=== PATIENT | male | born 1935 | race Caucasian/White ===

== ENCOUNTER 2020-08-18 08:53 | Emergency (ER) | payer MEDICARE ==
[~2020-08-18] VITALS: Ht 165.1 cm; Wt 75.8 kg
[2020-08-18 11:01] LABS: BASOPHILS # (AUTO) 0.1 X10'3 (0-0.2); BASOPHILS % (AUTO) 0.9 % (0-1); EOSINOPHILS # (AUTO) 0.1 X10'3 (0-0.9); EOSINOPHILS % (AUTO) 1.5 % (0-6); HEMATOCRIT 40.8 % (42.0-52.0); HEMOGLOBIN 13.3 g/dl (14.0-17.9); LYMPHOCYTES % (AUTO) 15.9 % (21-51); MEAN CORPUSCULAR HEMOGLOBIN 29.1 PG (27.0-31.0); MEAN CORPUSCULAR HGB CONC 32.5 g/dL (33.0-36.5); MEAN CORPUSCULAR VOLUME 89.5 FL (78-98); MEAN PLATELET VOLUME 8.5 FL (7.4-10.4); MONOCYTES # (AUTO) 0.7 X10'3 (0-0.9); MONOCYTES % (AUTO) 10.6 % (2-12); NEUTROPHILS # (AUTO) 4.6 X10'3 (1.8-7.7); NEUTROPHILS % (AUTO) 71.1 % (42-75); PLATELET COUNT 151 X10'3 (140-440); RED BLOOD COUNT 4.56 X10'6 (4.70-6.10); RED CELL DISTRIBUTION WIDTH 14.2 % (11.5-14.5); WHITE BLOOD COUNT 6.5 X10'3 (4.5-11.0)
--- NOTE | 2020-08-18 11:14 | NUR ---
pt ambulated to restroom
[2020-08-18 11:15] LABS: ALANINE AMINOTRANSFERASE 28 U/L (12-78); ALBUMIN 3.5 G/DL (3.4-5.0); ALKALINE PHOSPHATASE 78 IU/L (46-116); ANION GAP 7 (8-16); ASPARTATE AMINO TRANSFERASE 36 U/L (10-37); BILIRUBIN,TOTAL 0.5 MG/DL (0.1-1.0); BLOOD UREA NITROGEN 21 MG/DL (7-18); BUN/CREATININE RATIO 16.9 (5.4-32.0); CALCIUM 8.3 MG/DL (8.5-10.1); CHLORIDE 109 MMOL/L (99-107); CREATININE 1.24 MG/DL (0.60-1.10); GLUCOSE 98 MG/DL (70-104); POTASSIUM 3.7 MMOL/L (3.5-5.1); SODIUM 146 MMOL/L (135-145); TOTAL CARBON DIOXIDE 30.5 MMOL/L (24-32); TOTAL PROTEIN 7.1 G/DL (6.4-8.2); eGFR 56 ML/MIN
[2020-08-18] MEDS ORDERED: iohexol 300mg/ml 100ml inj. ONE (11:21)
[2020-08-18 12:30] VITALS: BP 154/100
== END 2020-08-18 12:33 | disposition home or self-care (01) ==
LOC: ER 08:54
DX: S20.211A Contusion of right front wall of thorax, initial encounter (principal); J90 Pleural effusion, not elsewhere classified; R22.2 Localized swelling, mass and lump, trunk; R07.89 Other chest pain; R06.02 Shortness of breath; I48.91 Unspecified atrial fibrillation; Z88.5 Allergy status to narcotic agent; W19.XXXA Unspecified fall, initial encounter; Y93.89 Activity, other specified; Y92.89 Other specified places as the place of occurrence of the external cause; Y99.8 Other external cause status
CPT/HCPCS: 36415; 71100; 71250; 80053; 85025; 93005; 99285; Q9967

== ENCOUNTER 2021-02-25 10:39 | Outpatient (CLI) | payer MEDICARE | END 2021-02-25 23:59 | disposition home or self-care (01) | LOC: RAD 10:39 | PROVIDERS: ATTEND Family Medicine | DX: M48.061 Spinal stenosis, lumbar region without neurogenic claudication (principal); M40.46 Postural lordosis, lumbar region | CPT/HCPCS: 72148 ==

== ENCOUNTER 2021-06-22 10:00 | Day surgery (SDC) | payer MEDICARE ==
[2021-06-21 13:20] LABS: BASOPHILS % (AUTO) 0.6 % (0-1); EOSINOPHILS # (AUTO) 0.1 X10'3 (0-0.9); EOSINOPHILS % (AUTO) 1.9 % (0-6); HEMATOCRIT 32.2 % (42.0-52.0); HEMOGLOBIN 10.1 g/dl (14.0-17.9); LYMPHOCYTES # (AUTO) 1.2 X10'3 (1.1-4.8); LYMPHOCYTES % (AUTO) 21.8 % (21-51); MEAN CORPUSCULAR HEMOGLOBIN 23.9 PG (27.0-31.0); MEAN CORPUSCULAR HGB CONC 31.3 g/dL (33.0-36.5); MEAN CORPUSCULAR VOLUME 76.5 FL (78-98); MEAN PLATELET VOLUME 7.8 FL (7.4-10.4); MONOCYTES # (AUTO) 0.6 X10'3 (0-0.9); MONOCYTES % (AUTO) 10.4 % (2-12); NEUTROPHILS # (AUTO) 3.7 X10'3 (1.8-7.7); NEUTROPHILS % (AUTO) 65.3 % (42-75); PLATELET COUNT 176 X10'3 (140-440); RED BLOOD COUNT 4.21 X10'6 (4.70-6.10); WHITE BLOOD COUNT 5.6 X10'3 (4.5-11.0)
[2021-06-21 13:28] LABS: ALBUMIN 3.7 G/DL (3.4-5.0); ANION GAP 4 (8-16); BLOOD UREA NITROGEN 25 MG/DL (7-18); BUN/CREATININE RATIO 16.3 (5.4-32.0); CALCIUM 8.8 MG/DL (8.5-10.1); CHLORIDE 105 MMOL/L (99-107); CREATININE 1.53 MG/DL (0.60-1.10); GLUCOSE 92 MG/DL (70-104); POTASSIUM 4.3 MMOL/L (3.5-5.1); SODIUM 143 MMOL/L (135-145); TOTAL CARBON DIOXIDE 33.9 MMOL/L (24-32); eGFR 44 ML/MIN
[2021-06-21 13:31] LABS: APTT 25 SECONDS (22-32)
[2021-06-21 13:46] LABS: PLATELET ESTIMATE NORMAL
[2021-06-21 13:47] LABS: ANISOCYTOSIS 3+; ELLIPTOCYTES FEW; MICROCYTOSIS 1+
[~2021-06-22] VITALS: Ht 162.6 cm; Wt 73.3 kg
[2021-06-22] VITALS (12 sets, daily range): BP systolic 135–171; BP diastolic 48–97
[2021-06-22] MEDS ORDERED: diphenhydrAMINE 25mg capsule PO PRN (10:15)
[2021-06-22] MEDS ORDERED: LORazepam 0.5 MG tablet PO PRN (10:15)
[2021-06-22] MEDS ORDERED: LISI20TA28 PO (10:39)
[2021-06-22] MEDS ORDERED: DILT240C47 PO (10:39)
[2021-06-22] MEDS ORDERED: SENN-25 PO (10:39)
[2021-06-22] MEDS ORDERED: FURO40TA4 PO (10:39)
[2021-06-22] MEDS ORDERED: ROSU20TA31 PO (10:39)
[2021-06-22] MEDS ORDERED: OMEP20CA16 PO (10:39)
[2021-06-22] MEDS ORDERED: APIX5TAB3 PO (10:39)
[2021-06-22] MEDS ORDERED: MELO-102 PO (10:39)
[2021-06-22] MEDS ORDERED: HYDR-3972 PO (10:39)
[2021-06-22] MEDS ORDERED: sodium bicarbonate (8.4%) inj. 150 MEQ in dextrose 5%-water 1,000 ML IV SCH (10:40)
[2021-06-22] MEDS ORDERED: normal saline 1000ml 1,000 ML IV SCH ×2 (10:55→14:20)
[2021-06-22] MEDS ORDERED: nitroGLYCERIN-Tridil 50MG/D5W 250 ML IV ONE (11:57)
[2021-06-22] MEDS ORDERED: LIDOcaine 1% (10mg/ml)w/preservative inj. 20ml MDV ONE (11:57)
[2021-06-22] MEDS ORDERED: verapamil 2.5 mg/ml inj IV ONE (11:57)
[2021-06-22] MEDS ORDERED: fentaNYL/PF 50MCG/1 ML 2ML syringe ONE (11:57)
[2021-06-22] MEDS ORDERED: midazolam 1 mg/ML 2ml injection ONE (11:57)
[2021-06-22] MEDS ORDERED: heparin 1,000unit/ml 10ml vial 10 ML ONE (11:58)
[2021-06-22] MEDS ORDERED: iohexol 350 MG/ML 50ML vial IV ONE ×2 (12:04→13:27)
[2021-06-22] MEDS ORDERED: iohexol 350MG/ML 100ml bottle IV ONE (12:04)
[2021-06-22 13:51] LABS: ISTAT HGB ART 10.2 g/dl (14.0-18.0); ISTAT Hct ART 30 %PCV (42-52); ISTAT O2 SATURATION ARTERIAL 97 % (95-98); ISTAT SOURCE ART
[2021-06-22 14:41] LABS: ISTAT Hct MIX 30 %PCV (42-52); ISTAT O2 SATURATION MIX VENOUS 62 % (60-80); ISTAT SOURCE VEN
== END 2021-06-22 20:00 | disposition home or self-care (01) ==
LOC: SSTAY O 10:00
PROVIDERS: ATTEND Internal Medicine Cardiovascular Disease
DX: R94.39 Abnormal result of other cardiovascular function study (principal); I25.10 Atherosclerotic heart disease of native coronary artery without angina pectoris; I48.91 Unspecified atrial fibrillation; E78.5 Hyperlipidemia, unspecified; J44.9 Chronic obstructive pulmonary disease, unspecified; G47.30 Sleep apnea, unspecified; M19.90 Unspecified osteoarthritis, unspecified site; B18.2 Chronic viral hepatitis C; K21.9 Gastro-esophageal reflux disease without esophagitis; G47.01 Insomnia due to medical condition; I11.0 Hypertensive heart disease with heart failure; I50.9 Heart failure, unspecified; Z79.899 Other long term (current) drug therapy; Z79.01 Long term (current) use of anticoagulants; Z85.828 Personal history of other malignant neoplasm of skin; Z86.14 Personal history of Methicillin resistant Staphylococcus aureus infection; Z85.818 Personal history of malignant neoplasm of other sites of lip, oral cavity, and pharynx; Z98.41 Cataract extraction status, right eye; Z98.42 Cataract extraction status, left eye; Z87.891 Personal history of nicotine dependence; Z88.5 Allergy status to narcotic agent; Z81.8 Family history of other mental and behavioral disorders; Z82.49 Family history of ischemic heart disease and other diseases of the circulatory system
CPT/HCPCS: 76937; 80048; 82803; 85014; 85025; 85610; 85730; 93005; 93460; 99152; 99153; C1751; C1760; C1769; C1894; J1644; J2250; J3010; J3490; J7030; Q0163; Q9967; 85008; A4620; A5120; A6258

== ENCOUNTER 2022-09-01 09:22 | Outpatient (CLI) | payer MEDICARE ==
[~2022-09-01 09:22] MED LIST: APIX5TAB3 PO; DILT240C47 PO; FURO40TA4 PO; HYDR-3972 PO; LISI20TA28 PO; MELO-102 PO; OMEP20CA16 PO; ROSU20TA31 PO; SENN-25 PO
== END 2022-09-01 23:59 | disposition home or self-care (01) ==
LOC: RAD 09:22
PROVIDERS: ATTEND Family Medicine
DX: M51.26 Other intervertebral disc displacement, lumbar region (principal); M48.061 Spinal stenosis, lumbar region without neurogenic claudication; M43.16 Spondylolisthesis, lumbar region; M43.27 Fusion of spine, lumbosacral region; M48.56XA Collapsed vertebra, not elsewhere classified, lumbar region, initial encounter for fracture; G12.9 Spinal muscular atrophy, unspecified; M54.9 Dorsalgia, unspecified
CPT/HCPCS: 72148

== ENCOUNTER 2022-10-13 00:05 | Emergency (ER) | payer MEDICARE ==
[~2022-10-13] VITALS: Ht 165.1 cm; Wt 72.7 kg
[~2022-10-13 00:05] MED LIST changes: -ROSU20TA31 PO; +ROSU20TA73 PO
[2022-10-13] MEDS ORDERED: acetaminophen 325mg tablet PO ONE (00:40)
[2022-10-13] MEDS ORDERED: TETanus/Pertussis (Acell)/Diphther VAC/PF (Tdap-Adult) 0.5ml syringe IMVAC ONE (00:40)
[2022-10-13 01:03] LABS: CLARITY,URINE CLEAR (Clear); COLOR,URINE YELLOW (Yellow); GLUCOSE, URINE NEGATIVE (Neg); KETONES,URINE NEGATIVE (Neg); LEUKOCYTE ESTERASE ,URINE NEGATIVE (Neg); NITRITES, URINE NEGATIVE (Neg); OCCULT BLOOD,URINE NEGATIVE (Neg); PH,URINE 6.5 (4.8-8.0); PROTEIN,URINE NEGATIVE (Neg)
[2022-10-13 01:08] LABS: UA COLLECTION TYPE CLN CATCH MIDSTREAM
[2022-10-13 01:32] LABS: BASOPHILS % (AUTO) 0.7 % (0-1); EOSINOPHILS # (AUTO) 0.2 X10'3 (0-0.9); EOSINOPHILS % (AUTO) 2.6 % (0-6); HEMATOCRIT 39.8 % (42.0-52.0); HEMOGLOBIN 13.3 g/dl (14.0-17.9); LYMPHOCYTES # (AUTO) 1.1 X10'3 (1.1-4.8); LYMPHOCYTES % (AUTO) 15.1 % (21-51); MEAN CORPUSCULAR HEMOGLOBIN 30.5 PG (27.0-31.0); MEAN CORPUSCULAR HGB CONC 33.3 g/dL (33.0-36.5); MEAN CORPUSCULAR VOLUME 91.6 FL (78-98); MEAN PLATELET VOLUME 7.6 FL (7.4-10.4); MONOCYTES # (AUTO) 0.5 X10'3 (0-0.9); MONOCYTES % (AUTO) 7.6 % (2-12); NEUTROPHILS # (AUTO) 5.3 X10'3 (1.8-7.7); PLATELET COUNT 139 X10'3 (140-440); RED BLOOD COUNT 4.34 X10'6 (4.70-6.10); RED CELL DISTRIBUTION WIDTH 13.7 % (11.5-14.5); WHITE BLOOD COUNT 7.1 X10'3 (4.5-11.0)
[2022-10-13 01:46] LABS: ALANINE AMINOTRANSFERASE 49 U/L (12-78); ALBUMIN/GLOBULIN RATIO 1.2 (1.1-1.5); ALKALINE PHOSPHATASE 101 IU/L (46-116); ANION GAP 7 (8-16); ASPARTATE AMINO TRANSFERASE 59 U/L (10-37); BILIRUBIN,TOTAL 0.6 MG/DL (0.1-1.0); BLOOD UREA NITROGEN 19 MG/DL (7-18); BUN/CREATININE RATIO 13.9 (10.0-20.0); CHLORIDE 105 MMOL/L (99-107); CREATININE 1.37 MG/DL (0.60-1.10); GLUCOSE 100 MG/DL (70-104); POTASSIUM 3.6 MMOL/L (3.5-5.1); SODIUM 142 MMOL/L (135-145); TOTAL CARBON DIOXIDE 30.4 MMOL/L (24-32); TOTAL PROTEIN 7.3 G/DL (6.4-8.2); eGFR 49 ML/MIN
[2022-10-13] MEDS ORDERED: iohexol 300mg/ml 100ml inj. ONE (02:13)
--- NOTE | 2022-10-13 02:16 | NUR ---
here to visit
--- NOTE | 2022-10-13 02:23 | NUR ---
went home, gave her some supplies for home care of elbow wound. She said to give her a call when all the reports are back and there is a decision.
[2022-10-13 03:50] LABS: ELLIPTOCYTES 1+; PLATELET ESTIMATE NORMAL
[2022-10-13 06:01] VITALS: BP 166/80
[2022-10-13] MEDS ORDERED: LIDOcaine 5% patch TP ONE (07:45)
== END 2022-10-13 09:24 | disposition home or self-care (01) ==
LOC: ER 00:06
DX: S22.42XA Multiple fractures of ribs, left side, initial encounter for closed fracture (principal); S51.012A Laceration without foreign body of left elbow, initial encounter; S00.03XA Contusion of scalp, initial encounter; S30.1XXA Contusion of abdominal wall, initial encounter; S09.90XA Unspecified injury of head, initial encounter; M54.2 Cervicalgia; M54.50 Low back pain, unspecified; I48.91 Unspecified atrial fibrillation; Z88.8 Allergy status to other drugs, medicaments and biological substances; Z79.899 Other long term (current) drug therapy; Z23 Encounter for immunization; W22.8XXA Striking against or struck by other objects, initial encounter; Y93.89 Activity, other specified; Y92.89 Other specified places as the place of occurrence of the external cause; Y99.8 Other external cause status
CPT/HCPCS: 36415; 70450; 71101; 71260; 72125; 74177; 80053; 81003; 85008; 85025; 85610; 90471; 90715; 99285; J3490; Q9967; A6258; A6449

== ENCOUNTER 2023-03-16 09:47 | Inpatient (IN) | payer MEDICARE ==
[~2023-03-16] VITALS: Ht 154.9 cm; Wt 66.8 kg
[2023-03-16] MEDS ORDERED: piperacillin/tazo 3.375gm/50ml 50 ML IV ONE (10:13)
[2023-03-16 11:13] LABS: BASOPHILS % (AUTO) 0.2 % (0-1); EOSINOPHILS % (AUTO) 0.1 % (0-6); HEMATOCRIT 36.9 % (42.0-52.0); HEMOGLOBIN 12.1 g/dl (14.0-17.9); LYMPHOCYTES # (AUTO) 0.8 X10'3 (1.1-4.8); LYMPHOCYTES % (AUTO) 6.7 % (21-51); MEAN CORPUSCULAR HEMOGLOBIN 30.3 PG (27.0-31.0); MEAN CORPUSCULAR HGB CONC 32.9 g/dL (33.0-36.5); MONOCYTES # (AUTO) 1.3 X10'3 (0-0.9); MONOCYTES % (AUTO) 10.1 % (2-12); NEUTROPHILS # (AUTO) 10.4 X10'3 (1.8-7.7); NEUTROPHILS % (AUTO) 82.9 % (42-75); PLATELET COUNT 139 X10'3 (140-440); RED BLOOD COUNT 4.01 X10'6 (4.70-6.10); RED CELL DISTRIBUTION WIDTH 14.4 % (11.5-14.5); WHITE BLOOD COUNT 12.5 X10'3 (4.5-11.0)
[2023-03-16 11:27] LABS: ALANINE AMINOTRANSFERASE 25 U/L (12-78); ALBUMIN 3.2 G/DL (3.4-5.0); ALBUMIN/GLOBULIN RATIO 0.8 (1.1-1.5); ALKALINE PHOSPHATASE 68 IU/L (46-116); ANION GAP 10 (8-16); ASPARTATE AMINO TRANSFERASE 35 U/L (10-37); BILIRUBIN,TOTAL 1.5 MG/DL (0.1-1.0); BLOOD UREA NITROGEN 15 MG/DL (7-18); BUN/CREATININE RATIO 12.8 (10.0-20.0); CALCIUM 8.9 MG/DL (8.5-10.1); CHLORIDE 102 MMOL/L (99-107); CREATININE 1.17 MG/DL (0.60-1.10); GLUCOSE 89 MG/DL (70-104); POTASSIUM 3.8 MMOL/L (3.5-5.1); SODIUM 136 MMOL/L (135-145); TOTAL CARBON DIOXIDE 24.2 MMOL/L (24-32); eCRCL 34 ML/MIN; eGFR 59 ML/MIN
[2023-03-16 11:33] LABS: MAGNESIUM 2.1 MG/DL (1.5-2.4); PRO BRAIN NATRIURETIC PEPTIDE 19689 PG/ML (0-450)
[2023-03-16 12:18] LABS: BILIRUBIN,URINE MODERATE (Neg); CLARITY,URINE SLIGHTLY CLOUDY (Clear); COLOR,URINE AMBER (Yellow); GLUCOSE, URINE NEGATIVE (Neg); KETONES,URINE 15 mg/dl (Neg); LEUKOCYTE ESTERASE ,URINE NEGATIVE (Neg); NITRITES, URINE NEGATIVE (Neg); OCCULT BLOOD,URINE TRACE-INTACT (Neg); PH,URINE 5.5 (4.8-8.0); PROTEIN,URINE 30 mg/dl (Neg)
[2023-03-16 12:41] LABS: BACTERIA,URINE FEW /HPF (Neg); MUCUS STRANDS FEW /LPF (Neg); RBC,URINE 0-2 /HPF (0-2); SQUAMOUS EPITHELIAL CELL,UR MODERATE /LPF (FEW); UA COLLECTION TYPE VOIDED; WBC,URINE 0-4 /HPF (0-4)
[2023-03-16] MEDS ORDERED: magnesium 2GM in 50ml NS 50 ML IV PRN (13:10)
[2023-03-16] MEDS ORDERED: PERFLUTREN PROTEIN-A MICROSPHR (Optison) 0.22 MG/ML 3ML VIAL IV ONE (13:10)
[2023-03-16] MEDS ORDERED: ondansetron/PF 4mg/2ml inj IV PRN (13:10)
[2023-03-16] MEDS ORDERED: acetaminophen 325mg tablet PO PRN (13:10)
[2023-03-16] MEDS ORDERED: magnesium 4gm in 100ml NS 100 ML IV PRN (13:10)
[2023-03-16] MEDS ORDERED: potassium Cl 20 mEq SR tablet PO PRN (13:10)
[2023-03-16] MEDS ORDERED: HYDROmorphone inj. 0.5 MG/0.5 ML DISP.SYRIN IV PRN (13:10)
[2023-03-16] MEDS ORDERED: potassium Cl 40MEQ/1/2NS 520ml 520 ML IV PRN (13:10)
[2023-03-16] MEDS ORDERED: mag hydrox/Alum hydrox/simeth 30ml oral suspension PO PRN (13:10)
[2023-03-16] MEDS ORDERED: magnesium hydroxide 30ml (MOM) UD suspension PO PRN (13:10)
[2023-03-16] MEDS ORDERED: vancomycin inj 1,000 MG in normal saline 250ml IV soln 250 ML IV ONE (13:10)
[2023-03-16] MEDS ORDERED: metoprolol tartrate 50mg tablet PO ONE (15:10)
[2023-03-16] MEDS ORDERED: heparin, porcine 5000 units/ml vial SQ SCH (16:00)
[2023-03-16] MEDS: vancomycin/NS 1 GM ADD-VANTAGE 250 ML IV SCH (16:13)
[2023-03-16] MEDS ORDERED: SPIR25TA5 PO (16:37)
[2023-03-16 18:00] VITALS: BP 112/76; PULSE 120; RESP 17; TEMP 98.1; O2SAT 98
[2023-03-16] MEDS: piperacillin/tazo 4.5gm/100ml 100 ML IV SCH (18:00)
[2023-03-16] MEDS ORDERED: metoprolol tartrate 25mg tablet PO ONE (18:15)
[2023-03-16] MEDS ORDERED: heparin 10,000 units/1 ML INJ IV ONE (18:30)
[2023-03-16 19:54] LABS: INR 1.1 INR; PROTHROMBIN TIME 11.9 SECONDS (9.0-12.0)
[2023-03-16 19:57] LABS: APTT 27 SECONDS (22-32)
[2023-03-16] MEDS: heparin 25,000 UNIT/250ml bag 250 ML IV PRN (19:59)
[2023-03-16 20:00] VITALS: RESP 18; O2SAT 96
[2023-03-16] MEDS: K and/or MAG REPLACEMENT MC SCH (20:00)
[2023-03-16] MEDS: docusate sod 100mg capsule PO SCH (20:37)
[2023-03-16 22:00] VITALS: BP 124/63; PULSE 100; RESP 16; TEMP 97.8; O2SAT 97
[2023-03-17] VITALS (7 sets, daily range): BP systolic 118–145; BP diastolic 52–83; PULSE 63–82; RESP 13–20; TEMP 96.6–97.8; O2SAT 95–100
[2023-03-17] MEDS: piperacillin/tazo 4.5gm/100ml 100 ML IV SCH ×3 (00:46→16:03)
[2023-03-17] MEDS: HYDROcodone/acetaminophen 10/325mg tab PO PRN ×4 (01:38→21:30)
[2023-03-17 02:29] LABS: BASOPHILS % (AUTO) 0.3 % (0-1); EOSINOPHILS # (AUTO) 0.1 X10'3 (0-0.9); EOSINOPHILS % (AUTO) 0.9 % (0-6); HEMATOCRIT 36.4 % (42.0-52.0); HEMOGLOBIN 12.4 g/dl (14.0-17.9); LYMPHOCYTES # (AUTO) 1.1 X10'3 (1.1-4.8); LYMPHOCYTES % (AUTO) 9.5 % (21-51); MEAN CORPUSCULAR HEMOGLOBIN 30.6 PG (27.0-31.0); MEAN CORPUSCULAR VOLUME 89.9 FL (78-98); MEAN PLATELET VOLUME 8.2 FL (7.4-10.4); MONOCYTES # (AUTO) 1.1 X10'3 (0-0.9); MONOCYTES % (AUTO) 10.3 % (2-12); NEUTROPHILS # (AUTO) 8.8 X10'3 (1.8-7.7); PLATELET COUNT 151 X10'3 (140-440); RED BLOOD COUNT 4.04 X10'6 (4.70-6.10); RED CELL DISTRIBUTION WIDTH 14.7 % (11.5-14.5); WHITE BLOOD COUNT 11.1 X10'3 (4.5-11.0)
[2023-03-17 02:36] LABS: ALANINE AMINOTRANSFERASE 25 U/L (12-78); ALBUMIN 2.8 G/DL (3.4-5.0); ALBUMIN/GLOBULIN RATIO 0.8 (1.1-1.5); ALKALINE PHOSPHATASE 64 IU/L (46-116); ANION GAP 9 (8-16); ASPARTATE AMINO TRANSFERASE 27 U/L (10-37); BLOOD UREA NITROGEN 22 MG/DL (7-18); BUN/CREATININE RATIO 17.6 (10.0-20.0); CALCIUM 8.4 MG/DL (8.5-10.1); CHLORIDE 103 MMOL/L (99-107); CREATININE 1.25 MG/DL (0.60-1.10); GLUCOSE 91 MG/DL (70-104); POTASSIUM 3.5 MMOL/L (3.5-5.1); SODIUM 136 MMOL/L (135-145); TOTAL CARBON DIOXIDE 24.4 MMOL/L (24-32); TOTAL PROTEIN 6.5 G/DL (6.4-8.2); eCRCL 31 ML/MIN; eGFR 55 ML/MIN
[2023-03-17] MEDS: K and/or MAG REPLACEMENT MC SCH ×2 (08:00→18:55)
[2023-03-17] MEDS: metoprolol succinate 25mg (24-HOUR) SR. Tablet PO SCH (08:19)
[2023-03-17] MEDS: docusate sod 100mg capsule PO SCH (08:19)
[2023-03-17] MEDS: heparin 10,000 units/1 ML INJ IV PRN (10:45)
[2023-03-17] MEDS: heparin 25,000 UNIT/250ml bag 250 ML IV PRN ×2 (10:48→17:42)
[2023-03-17] MEDS ORDERED: HYDROcodone/acetaminophen 10/325mg tab PO PRN (12:35)
[2023-03-17] MEDS: vancomycin/NS 1 GM ADD-VANTAGE 250 ML IV SCH (12:45)
[2023-03-17] MEDS ORDERED: docusate sod 100mg capsule PO PRN (13:25)
[2023-03-17] MEDS: lactobacillus rhamnosus 10,000 MMU CELLS/CAPSULE PO SCH (17:18)
[2023-03-17] MEDS: atorvastatin 20mg tablet PO SCH (20:24)
[2023-03-17] MEDS: Melatonin 3mg tablet PO SCH (21:29)
[2023-03-18] VITALS (7 sets, daily range): BP systolic 99–127; BP diastolic 57–76; PULSE 74–104; RESP 14–18; TEMP 97.4–98.2; O2SAT 94–98
[2023-03-18] MEDS: piperacillin/tazo 4.5gm/100ml 100 ML IV SCH ×4 (00:17→23:14)
[2023-03-18] MEDS: heparin 10,000 units/1 ML INJ IV PRN ×2 (00:41→17:10)
[2023-03-18] MEDS: HYDROcodone/acetaminophen 10/325mg tab PO PRN ×2 (04:09→23:12)
[2023-03-18] MEDS: pantoprazole 40mg Tablet.DR PO SCH (07:32)
[2023-03-18] MEDS: metoprolol succinate 25mg (24-HOUR) SR. Tablet PO SCH (07:33)
[2023-03-18] MEDS: lactobacillus rhamnosus 10,000 MMU CELLS/CAPSULE PO SCH ×3 (07:34→16:40)
[2023-03-18] MEDS: lisinopril 20mg tablet PO SCH (07:36)
[2023-03-18 07:37] LABS: BASOPHILS # (AUTO) 0.1 X10'3 (0-0.2); BASOPHILS % (AUTO) 0.7 % (0-1); EOSINOPHILS # (AUTO) 0.3 X10'3 (0-0.9); EOSINOPHILS % (AUTO) 3.3 % (0-6); LYMPHOCYTES # (AUTO) 0.9 X10'3 (1.1-4.8); MEAN CORPUSCULAR HEMOGLOBIN 30.3 PG (27.0-31.0); MEAN CORPUSCULAR HGB CONC 33.2 g/dL (33.0-36.5); MEAN CORPUSCULAR VOLUME 91.2 FL (78-98); MEAN PLATELET VOLUME 8.3 FL (7.4-10.4); MONOCYTES # (AUTO) 0.8 X10'3 (0-0.9); NEUTROPHILS # (AUTO) 6.4 X10'3 (1.8-7.7); PLATELET COUNT 169 X10'3 (140-440); RED BLOOD COUNT 4.28 X10'6 (4.70-6.10); RED CELL DISTRIBUTION WIDTH 14.5 % (11.5-14.5); WHITE BLOOD COUNT 8.5 X10'3 (4.5-11.0)
[2023-03-18] MEDS: furosemide 20 MG/2 ML vial IV SCH (07:38)
[2023-03-18] MEDS: K and/or MAG REPLACEMENT MC SCH ×2 (08:00→09:07)
[2023-03-18 08:15] LABS: ALANINE AMINOTRANSFERASE 27 U/L (12-78); ALBUMIN/GLOBULIN RATIO 0.7 (1.1-1.5); ALKALINE PHOSPHATASE 60 IU/L (46-116); ANION GAP 11 (8-16); ASPARTATE AMINO TRANSFERASE 34 U/L (10-37); BILIRUBIN,TOTAL 0.8 MG/DL (0.1-1.0); BLOOD UREA NITROGEN 18 MG/DL (7-18); BUN/CREATININE RATIO 12.1 (10.0-20.0); CALCIUM 8.8 MG/DL (8.5-10.1); CHLORIDE 102 MMOL/L (99-107); CREATININE 1.49 MG/DL (0.60-1.10); GLUCOSE 102 MG/DL (70-104); MAGNESIUM 2.2 MG/DL (1.5-2.4); SODIUM 137 MMOL/L (135-145); TOTAL CARBON DIOXIDE 24.5 MMOL/L (24-32); TOTAL PROTEIN 7.2 G/DL (6.4-8.2); eCRCL 26 ML/MIN; eGFR 45 ML/MIN
[2023-03-18] MEDS: potassium Cl 20 mEq SR tablet PO PRN ×3 (09:18→20:43)
[2023-03-18] MEDS: heparin 25,000 UNIT/250ml bag 250 ML IV PRN ×2 (09:51→12:55)
[2023-03-18] MEDS: VANCOMYCIN 750MG IV in NS 250 ML IV SCH (14:16)
[2023-03-18] MEDS: atorvastatin 20mg tablet PO SCH (20:42)
[2023-03-18] MEDS: Melatonin 3mg tablet PO SCH (20:53)
[2023-03-19 06:00] VITALS: BP 138/75; PULSE 83; RESP 16; TEMP 97.5; O2SAT 98
[2023-03-19 07:49] LABS: BASOPHILS # (AUTO) 0.1 X10'3 (0-0.2); BASOPHILS % (AUTO) 0.8 % (0-1); EOSINOPHILS # (AUTO) 0.2 X10'3 (0-0.9); EOSINOPHILS % (AUTO) 3.1 % (0-6); HEMOGLOBIN 12.4 g/dl (14.0-17.9); LYMPHOCYTES % (AUTO) 14.5 % (21-51); MEAN CORPUSCULAR HEMOGLOBIN 30.3 PG (27.0-31.0); MEAN CORPUSCULAR HGB CONC 33.4 g/dL (33.0-36.5); MEAN CORPUSCULAR VOLUME 90.8 FL (78-98); MEAN PLATELET VOLUME 8.2 FL (7.4-10.4); MONOCYTES # (AUTO) 0.8 X10'3 (0-0.9); MONOCYTES % (AUTO) 11.2 % (2-12); NEUTROPHILS # (AUTO) 4.8 X10'3 (1.8-7.7); NEUTROPHILS % (AUTO) 70.4 % (42-75); PLATELET COUNT 184 X10'3 (140-440); RED BLOOD COUNT 4.08 X10'6 (4.70-6.10); RED CELL DISTRIBUTION WIDTH 14.8 % (11.5-14.5); WHITE BLOOD COUNT 6.9 X10'3 (4.5-11.0)
[2023-03-19] MEDS: heparin 25,000 UNIT/250ml bag 250 ML IV PRN (08:08)
[2023-03-19] MEDS: furosemide 20 MG/2 ML vial IV SCH (08:32)
[2023-03-19] MEDS: piperacillin/tazo 4.5gm/100ml 100 ML IV SCH ×2 (08:36→20:09)
[2023-03-19 08:37] LABS: ALANINE AMINOTRANSFERASE 25 U/L (12-78); ALBUMIN 2.8 G/DL (3.4-5.0); ALBUMIN/GLOBULIN RATIO 0.7 (1.1-1.5); ALKALINE PHOSPHATASE 53 IU/L (46-116); ANION GAP 9 (8-16); ASPARTATE AMINO TRANSFERASE 30 U/L (10-37); BILIRUBIN,TOTAL 0.6 MG/DL (0.1-1.0); BLOOD UREA NITROGEN 12 MG/DL (7-18); CALCIUM 8.8 MG/DL (8.5-10.1); CHLORIDE 106 MMOL/L (99-107); CREATININE 1.33 MG/DL (0.60-1.10); GLUCOSE 92 MG/DL (70-104); MAGNESIUM 2.1 MG/DL (1.5-2.4); POTASSIUM 4.3 MMOL/L (3.5-5.1); SODIUM 141 MMOL/L (135-145); TOTAL CARBON DIOXIDE 26.1 MMOL/L (24-32); TOTAL PROTEIN 6.9 G/DL (6.4-8.2); eCRCL 29 ML/MIN; eGFR 51 ML/MIN
[2023-03-19] MEDS: pantoprazole 40mg Tablet.DR PO SCH (08:45)
[2023-03-19] MEDS: metoprolol succinate 25mg (24-HOUR) SR. Tablet PO SCH (08:45)
[2023-03-19] MEDS: lactobacillus rhamnosus 10,000 MMU CELLS/CAPSULE PO SCH ×3 (08:45→17:29)
[2023-03-19] MEDS: lisinopril 20mg tablet PO SCH (08:47)
[2023-03-19 09:11] LABS: BURR CELLS FEW; ELLIPTOCYTES FEW; PLATELET ESTIMATE NORMAL; SCHISTOCYTES FEW; TEAR DROP CELLS FEW; TOTAL CELLS COUNTED 100
[2023-03-19] MEDS: normal saline 1000ml 1,000 ML IV SCH (09:17)
[2023-03-19] MEDS ORDERED: midazolam 1 mg/ML 2ml injection ONE ×4 (09:37→14:30)
[2023-03-19] MEDS ORDERED: fentaNYL/PF 50MCG/1 ML 2ML syringe ONE ×4 (09:37→14:30)
[2023-03-19] MEDS ORDERED: LIDOcaine 1% 30ml preserv. free vial ONE (09:38)
[2023-03-19] MEDS ORDERED: iohexol 300mg/ml 100ml inj. ONE ×2 (09:38→12:51)
[2023-03-19] MEDS ORDERED: heparin 1,000 UNITS/NS 500ml 500 ML ONE ×2 (09:52→12:26)
[2023-03-19 10:00] VITALS: BP 150/91; PULSE 97; RESP 16; TEMP 97.1; O2SAT 98
[2023-03-19] MEDS ORDERED: heparin 1,000unit/ml 10ml vial 10 ML ONE (11:52)
[2023-03-19] MEDS: VANCOMYCIN 750MG IV in NS 250 ML IV SCH (17:24)
[2023-03-19] MEDS: HYDROmorphone/PF 0.2 MG/ML SYRINGE IV PRN (17:47)
[2023-03-19 17:59] LABS: APTT > 139 SECONDS (22-32)
[2023-03-19 18:00] VITALS: BP 149/92; PULSE 73; RESP 13; TEMP 96.8; O2SAT 99
[2023-03-19] MEDS: K and/or MAG REPLACEMENT MC SCH (20:00)
[2023-03-19] MEDS: clopidogrel 75mg tablet PO SCH (20:08)
[2023-03-19] MEDS: atorvastatin 20mg tablet PO SCH (20:08)
[2023-03-19] MEDS: HYDROcodone/acetaminophen 10/325mg tab PO PRN (20:09)
[2023-03-19] MEDS: Melatonin 3mg tablet PO SCH (20:09)
[2023-03-19] MEDS ORDERED: metoprolol tartrate 25mg tablet PO ONE (20:40)
[2023-03-19 22:00] VITALS: BP 134/55; PULSE 60; RESP 18; TEMP 98.3; O2SAT 99
[2023-03-19] MEDS: heparin 10,000 units/1 ML INJ IV PRN (23:50)
[2023-03-20] VITALS (8 sets, daily range): BP systolic 105–137; BP diastolic 44–79; PULSE 68–136; RESP 14–18; TEMP 97.3–98.3; O2SAT 96–100
[2023-03-20] MEDS: piperacillin/tazo 4.5gm/100ml 100 ML IV SCH ×2 (01:24→08:54)
[2023-03-20] MEDS: HYDROcodone/acetaminophen 10/325mg tab PO PRN ×5 (03:48→21:39)
[2023-03-20] MEDS: normal saline 1000ml 1,000 ML IV SCH (04:20)
[2023-03-20] MEDS: heparin 25,000 UNIT/250ml bag 250 ML IV PRN (05:05)
[2023-03-20] MEDS: HYDROmorphone/PF 0.2 MG/ML SYRINGE IV PRN (05:12)
[2023-03-20 07:34] LABS: BASOPHILS # (AUTO) 0.2 X10'3 (0-0.2); BASOPHILS % (AUTO) 1.2 % (0-1); EOSINOPHILS # (AUTO) 0.2 X10'3 (0-0.9); EOSINOPHILS % (AUTO) 1.8 % (0-6); HEMATOCRIT 33.1 % (42.0-52.0); HEMOGLOBIN 10.8 g/dl (14.0-17.9); LYMPHOCYTES # (AUTO) 2.1 X10'3 (1.1-4.8); LYMPHOCYTES % (AUTO) 16.5 % (21-51); MEAN CORPUSCULAR HEMOGLOBIN 30.1 PG (27.0-31.0); MEAN CORPUSCULAR HGB CONC 32.7 g/dL (33.0-36.5); MEAN PLATELET VOLUME 8.2 FL (7.4-10.4); MONOCYTES # (AUTO) 1.1 X10'3 (0-0.9); NEUTROPHILS % (AUTO) 71.5 % (42-75); PLATELET COUNT 239 X10'3 (140-440); RED CELL DISTRIBUTION WIDTH 14.9 % (11.5-14.5); WHITE BLOOD COUNT 12.6 X10'3 (4.5-11.0)
[2023-03-20] MEDS: K and/or MAG REPLACEMENT MC SCH ×2 (08:00→20:00)
[2023-03-20 08:04] LABS: ALANINE AMINOTRANSFERASE 23 U/L (12-78); ALBUMIN 2.7 G/DL (3.4-5.0); ALBUMIN/GLOBULIN RATIO 0.7 (1.1-1.5); ALKALINE PHOSPHATASE 49 IU/L (46-116); ANION GAP 11 (8-16); ASPARTATE AMINO TRANSFERASE 37 U/L (10-37); BILIRUBIN,TOTAL 0.8 MG/DL (0.1-1.0); BLOOD UREA NITROGEN 12 MG/DL (7-18); BUN/CREATININE RATIO 9.4 (10.0-20.0); CALCIUM 8.9 MG/DL (8.5-10.1); CHLORIDE 106 MMOL/L (99-107); CREATININE 1.28 MG/DL (0.60-1.10); GLUCOSE 89 MG/DL (70-104); MAGNESIUM 2.2 MG/DL (1.5-2.4); SODIUM 138 MMOL/L (135-145); TOTAL PROTEIN 6.5 G/DL (6.4-8.2); eCRCL 31 ML/MIN; eGFR 53 ML/MIN
[2023-03-20 08:09] LABS: POTASSIUM 4.2 MMOL/L (3.5-5.1)
[2023-03-20] MEDS: clopidogrel 75mg tablet PO SCH (08:35)
[2023-03-20] MEDS: lactobacillus rhamnosus 10,000 MMU CELLS/CAPSULE PO SCH ×3 (08:36→21:32)
[2023-03-20] MEDS: pantoprazole 40mg Tablet.DR PO SCH (08:36)
[2023-03-20] MEDS: metoprolol succinate 25mg (24-HOUR) SR. Tablet PO SCH (08:37)
[2023-03-20] MEDS: lisinopril 20mg tablet PO SCH (08:39)
[2023-03-20] MEDS: furosemide 20 MG/2 ML vial IV SCH (08:47)
[2023-03-20] MEDS ORDERED: diltiazem 5mg/ml 5ml inj. IV ONE ×2 (09:35→19:15)
[2023-03-20] MEDS: VANCOMYCIN 750MG IV in NS 250 ML IV SCH (13:42)
[2023-03-20] MEDS ORDERED: HYDROmorphone inj. 0.5 MG/0.5 ML DISP.SYRIN IV PRN (14:07)
[2023-03-20 15:45] LABS: APTT 58 SECONDS (22-32)
[2023-03-20] MEDS: ceFAZolin/D5W- 1GM premix 50 ML IV SCH (16:11)
[2023-03-20] MEDS: Melatonin 3mg tablet PO SCH (21:32)
[2023-03-20] MEDS: atorvastatin 20mg tablet PO SCH (21:32)
[2023-03-21] MEDS: normal saline 1000ml 1,000 ML IV SCH ×2 (02:43→21:45)
[2023-03-21] MEDS: ceFAZolin/D5W- 1GM premix 50 ML IV SCH ×4 (02:43→23:07)
[2023-03-21 06:00] VITALS: BP 144/63; PULSE 138; RESP 13; TEMP 97.8; O2SAT 100
[2023-03-21] MEDS: metoprolol succinate 25mg (24-HOUR) SR. Tablet PO SCH ×2 (06:09→08:57)
[2023-03-21] MEDS: HYDROcodone/acetaminophen 10/325mg tab PO PRN ×2 (06:10→17:35)
[2023-03-21 06:47] LABS: BASOPHILS # (AUTO) 0.1 X10'3 (0-0.2); EOSINOPHILS # (AUTO) 0.3 X10'3 (0-0.9); EOSINOPHILS % (AUTO) 2.3 % (0-6); HEMATOCRIT 27.6 % (42.0-52.0); HEMOGLOBIN 8.8 g/dl (14.0-17.9); LYMPHOCYTES # (AUTO) 1.1 X10'3 (1.1-4.8); LYMPHOCYTES % (AUTO) 9.6 % (21-51); MEAN CORPUSCULAR HEMOGLOBIN 30.5 PG (27.0-31.0); MEAN CORPUSCULAR VOLUME 95.2 FL (78-98); MEAN PLATELET VOLUME 7.7 FL (7.4-10.4); MONOCYTES # (AUTO) 0.9 X10'3 (0-0.9); MONOCYTES % (AUTO) 8.3 % (2-12); NEUTROPHILS # (AUTO) 8.7 X10'3 (1.8-7.7); NEUTROPHILS % (AUTO) 78.8 % (42-75); PLATELET COUNT 210 X10'3 (140-440); RED CELL DISTRIBUTION WIDTH 14.9 % (11.5-14.5)
[2023-03-21 07:02] LABS: ALANINE AMINOTRANSFERASE 19 U/L (12-78); ALBUMIN 2.7 G/DL (3.4-5.0); ALBUMIN/GLOBULIN RATIO 0.7 (1.1-1.5); ALKALINE PHOSPHATASE 42 IU/L (46-116); ANION GAP 10 (8-16); ASPARTATE AMINO TRANSFERASE 41 U/L (10-37); BILIRUBIN,TOTAL 0.6 MG/DL (0.1-1.0); BLOOD UREA NITROGEN 13 MG/DL (7-18); BUN/CREATININE RATIO 8.8 (10.0-20.0); CALCIUM 8.6 MG/DL (8.5-10.1); CHLORIDE 106 MMOL/L (99-107); CREATININE 1.48 MG/DL (0.60-1.10); GLUCOSE 102 MG/DL (70-104); MAGNESIUM 2.1 MG/DL (1.5-2.4); POTASSIUM 3.9 MMOL/L (3.5-5.1); SODIUM 137 MMOL/L (135-145); TOTAL CARBON DIOXIDE 21.2 MMOL/L (24-32); TOTAL PROTEIN 6.4 G/DL (6.4-8.2); eCRCL 27 ML/MIN; eGFR 45 ML/MIN
[2023-03-21] MEDS: K and/or MAG REPLACEMENT MC SCH ×2 (08:00→20:00)
[2023-03-21] MEDS: lactobacillus rhamnosus 10,000 MMU CELLS/CAPSULE PO SCH ×3 (08:53→17:35)
[2023-03-21] MEDS: lisinopril 20mg tablet PO SCH (08:54)
[2023-03-21] MEDS: clopidogrel 75mg tablet PO SCH (08:58)
[2023-03-21] MEDS: pantoprazole 40mg Tablet.DR PO SCH (08:59)
[2023-03-21] MEDS: furosemide 20 MG/2 ML vial IV SCH (09:00)
[2023-03-21 10:00] VITALS: BP 106/45; PULSE 88; RESP 14; TEMP 97.6; O2SAT 99
[2023-03-21] MEDS ORDERED: VANCOMYCIN LEVEL IV ONE (13:30)
[2023-03-21 17:15] VITALS: BP 131/71; PULSE 113; RESP 16; TEMP 98.3; O2SAT 97
[2023-03-21] MEDS: diltiazem CD 120mg capsule (once-daily) PO SCH (17:35)
[2023-03-21] MEDS: lactose-reduced food (Ensure Enlive) - 237ml bottle PO SCH (17:48)
[2023-03-21 18:00] VITALS: BP 131/71; PULSE 113; RESP 16; TEMP 98.3; O2SAT 97
[2023-03-21] MEDS: Melatonin 3mg tablet PO SCH (20:49)
[2023-03-21] MEDS: atorvastatin 20mg tablet PO SCH (20:49)
[2023-03-22 02:00] VITALS: BP 125/65; PULSE 81; RESP 15; TEMP 98.4; O2SAT 94
[2023-03-22 07:00] VITALS: BP 139/53; PULSE 90; RESP 14; TEMP 98.5; O2SAT 99
[2023-03-22] MEDS: lactose-reduced food (Ensure Enlive) - 237ml bottle PO SCH (07:35)
[2023-03-22] MEDS: ceFAZolin/D5W- 1GM premix 50 ML IV SCH (07:40)
[2023-03-22] MEDS: clopidogrel 75mg tablet PO SCH (07:40)
[2023-03-22] MEDS: lisinopril 20mg tablet PO SCH (07:40)
[2023-03-22] MEDS: metoprolol succinate 25mg (24-HOUR) SR. Tablet PO SCH (07:40)
[2023-03-22] MEDS: lactobacillus rhamnosus 10,000 MMU CELLS/CAPSULE PO SCH ×2 (07:40→13:23)
[2023-03-22] MEDS: pantoprazole 40mg Tablet.DR PO SCH (07:40)
[2023-03-22] MEDS: diltiazem CD 120mg capsule (once-daily) PO SCH (07:41)
[2023-03-22] MEDS: furosemide 20 MG/2 ML vial IV SCH (07:41)
[2023-03-22] MEDS: HYDROcodone/acetaminophen 10/325mg tab PO PRN ×2 (07:44→13:23)
[2023-03-22 08:00] VITALS: RESP 14; O2SAT 99
[2023-03-22] MEDS: K and/or MAG REPLACEMENT MC SCH (08:00)
[2023-03-22] MEDS ORDERED: diltiazem CD 120mg capsule (once-daily) PO SCH (08:00)
[2023-03-22 08:01] LABS: BASOPHILS # (AUTO) 0.1 X10'3 (0-0.2); BASOPHILS % (AUTO) 1.3 % (0-1); EOSINOPHILS # (AUTO) 0.3 X10'3 (0-0.9); EOSINOPHILS % (AUTO) 2.5 % (0-6); HEMATOCRIT 25.4 % (42.0-52.0); HEMOGLOBIN 8.5 g/dl (14.0-17.9); LYMPHOCYTES # (AUTO) 1.4 X10'3 (1.1-4.8); LYMPHOCYTES % (AUTO) 13.8 % (21-51); MEAN CORPUSCULAR HEMOGLOBIN 30.4 PG (27.0-31.0); MEAN CORPUSCULAR HGB CONC 33.7 g/dL (33.0-36.5); MEAN CORPUSCULAR VOLUME 90.3 FL (78-98); MEAN PLATELET VOLUME 7.7 FL (7.4-10.4); MONOCYTES # (AUTO) 0.9 X10'3 (0-0.9); MONOCYTES % (AUTO) 8.7 % (2-12); NEUTROPHILS # (AUTO) 7.5 X10'3 (1.8-7.7); NEUTROPHILS % (AUTO) 73.7 % (42-75); PLATELET COUNT 230 X10'3 (140-440); RED BLOOD COUNT 2.81 X10'6 (4.70-6.10); RED CELL DISTRIBUTION WIDTH 14.9 % (11.5-14.5); WHITE BLOOD COUNT 10.2 X10'3 (4.5-11.0)
[2023-03-22 08:51] LABS: ALANINE AMINOTRANSFERASE 22 U/L (12-78); ALBUMIN 2.6 G/DL (3.4-5.0); ALBUMIN/GLOBULIN RATIO 0.7 (1.1-1.5); ALKALINE PHOSPHATASE 50 IU/L (46-116); ANION GAP 7 (8-16); ASPARTATE AMINO TRANSFERASE 42 U/L (10-37); BILIRUBIN,TOTAL 0.6 MG/DL (0.1-1.0); BLOOD UREA NITROGEN 11 MG/DL (7-18); BUN/CREATININE RATIO 8.7 (10.0-20.0); CALCIUM 8.7 MG/DL (8.5-10.1); CHLORIDE 107 MMOL/L (99-107); CREATININE 1.26 MG/DL (0.60-1.10); GLUCOSE 98 MG/DL (70-104); POTASSIUM 4.2 MMOL/L (3.5-5.1); SODIUM 140 MMOL/L (135-145); TOTAL CARBON DIOXIDE 26.3 MMOL/L (24-32); TOTAL PROTEIN 6.4 G/DL (6.4-8.2); eCRCL 31 ML/MIN; eGFR 54 ML/MIN
[2023-03-22] MEDS ORDERED: CARCD120C PO (10:42)
[2023-03-22] MEDS ORDERED: LACT1CAP26 PO (10:42)
[2023-03-22] MEDS ORDERED: DOCU100C40 PO (10:42)
[2023-03-22] MEDS ORDERED: CLOP75TA34 PO (10:42)
[2023-03-22] MEDS ORDERED: CEFT2VIA13 IV (10:42)
[2023-03-22] MEDS ORDERED: METO-395 PO (10:42)
[2023-03-22 11:00] VITALS: BP 132/48; PULSE 73; RESP 18; TEMP 97.8; O2SAT 94
== END 2023-03-22 14:14 | DRG 853 ==
LOC: ER 09:47 → ED HOLD 13:17 → ORTHO 4S 16:50 → PCU 3S 03-21 16:56
PROVIDERS: ADMIT Family Medicine; ATTEND Family Medicine
PROC: 047L3DZ Dilation of Left Femoral Artery with Intraluminal Device, Percutaneous Approach (ICD-10-PCS; principal; 2023-03-19)
PROC: 05HC33Z Insertion of Infusion Device into Left Basilic Vein, Percutaneous Approach (ICD-10-PCS; 2023-03-22)
DX: A41.9 Sepsis, unspecified organism (principal); I50.33 Acute on chronic diastolic (congestive) heart failure; N17.0 Acute kidney failure with tubular necrosis; L03.116 Cellulitis of left lower limb; I13.0 Hypertensive heart and chronic kidney disease with heart failure and stage 1 through stage 4 chronic kidney disease, or unspecified chronic kidney disease; I50.32 Chronic diastolic (congestive) heart failure; L97.529 Non-pressure chronic ulcer of other part of left foot with unspecified severity; Z66 Do not resuscitate; I73.9 Peripheral vascular disease, unspecified; N18.9 Chronic kidney disease, unspecified; I48.0 Paroxysmal atrial fibrillation; M51.36 Other intervertebral disc degeneration, lumbar region; Z88.5 Allergy status to narcotic agent; Z79.899 Other long term (current) drug therapy; Z98.1 Arthrodesis status; Z82.49 Family history of ischemic heart disease and other diseases of the circulatory system; Z87.891 Personal history of nicotine dependence
CPT/HCPCS: 36410; 36415; 37224; 71045; 73700; 75710; 76942; 80053; 81001; 83605; 83735; 83880; 84145; 84484; 85007; 85025; 85347; 85610; 85730; 87040; 87077; 87081; 87186; 93306; 93922; 93925; 97116; 97161; 97530; 99152; 99153; 99285; A4349; A4615; A4649; A6222; A6250; A6258; A6402; A6446; A6449; C1725; C1751; C1760; C1769; C1876; C1887; C1894; G0378; J0690; J1170; J1644; J1940; J2250; J2543; J3010; J3370; J3490; J7030; J7050; Q9967